=== PATIENT | male | born 1980 | race Caucasian/White ===

== ENCOUNTER 2021-04-21 12:25 | Emergency (ER) | payer OTHER, MEDICAID, SELFPAY ==
[2021-04-21 12:39] VITALS: BP 124/79; PULSE 70; RESP 18; TEMP 36.2; O2SAT 99
--- NOTE | 2021-04-21 12:44 | DI.RAD.S_ITS ---
PROCEDURE: XR FINGER LT MIN 2V INDICATIONS: laceration w/ skill saw TECHNIQUE: AP hand, 2 views of the 1st finger(s) acquired. COMPARISON: None. FINDINGS: Bones: No fractures or dislocations. No suspicious bony lesions. Soft tissues: No suspicious soft tissue calcifications. First finger soft tissue laceration without radiopaque foreign body IMPRESSION: Soft tissue laceration without fracture or foreign body Approved by: Dell Golden M.D. on 04/21/2021 at 12:17
[2021-04-21] MEDS: LIDOCAINE 1% 20 ML 10 ML INJ (15:02)
--- NOTE | 2021-04-21 16:07 | PC.NURSE ---
Pt came out of room and aggressively asked staff about wait I have been holding my finger together for four hours!!! Is anyone going to see me or are they just going to ask for my birthday again? Stance was aggressive. Approached pt and updated on acuity of the Emergency Room (multiple level 2s and one level 1, full ED) and he verbalized further aggression. I then asked him to be patient. He further verbalized frustration in an in appropriate way to me. I then offered that he could leave the ED if he chose or I could ask the provider for a time frame. He agreed to allow me to ask provider for a time frame. PA in to evaluate patient.
[2021-04-21 16:56] VITALS: BP 122/76; PULSE 67; RESP 16; O2SAT 99
--- NOTE | 2021-04-24 17:42 | ED.SKABFB ---
HPI - Skin/Abscess/Foreign Bdy <Vlad Cohen PA-C - Last Filed: 04/24/21 17:56> General Chief complaint: Skin/Abscess/Foreign Body Stated complaint: Laceration to Left Thumb Time Seen by Provider: 04/21/21 14:02 Source: patient Mode of arrival: Ambulatory Limitations: no limitations History of Present Illness HPI narrative: 40-year-old male with no reported past medical history presents to the ED status post he laceration to left thumb sustained just prior to arrival. Patient was using a skill saw at home when he accidentally injured his left thumb. Patient denies numbness, tingling, weakness. Endorses being able to stop the bleeding with pressure. Denies fever, chills, chest pain, shortness of breath, nausea, vomiting, Abdominal pain, lightheadedness, dizziness, syncope. last Tdap was 5 months ago. Related Data Home Medications Medication Instructions Recorded Confirmed No Known Home Medications 04/21/21 04/21/21 Allergies Allergy/AdvReac Type Severity Reaction Status Date / Time Sulfa (Sulfonamide Allergy Severe Anaphylaxis Verified 04/21/21 12:44 Antibiotics) Review of Systems <Vlad Cohen PA-C - Last Filed: 04/24/21 17:56> Constitutional Constitutional: Denies chills, Denies fatigue, Denies fever(s), Denies frequent falls, Denies lethargy and Denies weakness Eyes Eyes: Denies change in vision, Denies eye discharge, Denies irritation and Denies loss of vision ENT Ears, Nose, Mouth, and Throat: Denies change in voice, Denies dizziness, Denies neck pain, Denies sore throat and Denies throat swelling Cardiovascular Cardiovascular: Denies chest pain, Denies irregular heart rhythm, Denies lightheadedness, Denies palpitations, Denies dyspnea, Denies dyspnea on exertion and Denies orthopnea Respiratory Respiratory: Denies cough, Denies dyspnea, Denies dyspnea on exertion and Denies wheezing Gastrointestinal Gastrointestinal: Denies abdominal pain, Denies change in bowel habits, Denies diarrhea, Denies nausea and Denies vomiting Musculoskeletal Musculoskeletal: Denies neck pain and Denies numbness Integumentary/Breasts Skin/Breast: Denies pruritus, Denies erythema, Denies rash and Reports wounds Comments: Laceration to left thumb Neurologic Neurologic: Denies behavioral changes, Denies confusion, Denies dizziness, Denies frequent falls, Denies loss of vision, Denies numbness and Denies weakness Psychiatric Psychiatric: Denies anxiety, Denies behavioral changes, Denies confusion, Denies depression, Denies homicidal ideation and Denies suicidal ideation Endocrine Endocrine: Denies fatigue, Denies flushing and Denies palpitations Hematologic/Lymphatic Hematologic/Lymphatic: Denies easy bruising Allergic/Immunologic Allergic/Immunologic: Denies urticaria, Denies throat swelling and Denies wheezing Patient History <Vlad Cohen PA-C - Last Filed: 04/24/21 17:56> Social History Smoking Status: Current some day smoker Smoking Status: Current some day smoker tobacco type: vaping alcohol intake frequency: a few times a month Substance Use Type: marijuana Exam <BELEM Clark Last Filed: 04/24/21 17:56> Initial Vital Signs Initial Vital Signs: Vital Signs Temperature 97.1 F L 04/21/21 12:39 Pulse Rate 70 04/21/21 12:39 Respiratory Rate 18 04/21/21 12:39 Blood Pressure 124/79 04/21/21 12:39 Pulse Oximetry 99 04/21/21 12:39 Const General: cooperative HENMT Head: normocephalic and atraumatic Ears: external ears normal and TM's normal bilaterally Nose: external nose normal and No nasal discharge Face and sinus: sinuses nontender, face symmetric, no sinus tenderness and No dry mucous membranes Mouth: oral mucosae normal and moist mucous membranes Teeth and gingiva: dentition normal Throat: tonsils normal and uvula midline Eyes General: appearance normal, both eyes and all related structures Eyelids: eyelids normal Conjunctivae: conjunctivae normal Sclera: sclerae normal Pupils: PERRL EOM: EOM intact bilaterally Neck Neck: normal visual inspection, trachea midline, No lymphadenopathy, No midline deformity and No JVD Lymphatic: No lymphedema Chest Chest: normal inspection of the chest Resp Effort & Inspection: normal respiratory effort, able to speak in complete sentences, no respiratory distress and no use of accessory muscles Auscultation: clear to auscultation bilaterally, no rales, no rhonchi and no wheezes Cardio Rate: regular rate Rhythm: regular rhythm Heart Sounds: no click, no gallops, no murmurs and no rubs Pulses: normal peripheral pulses GI Inspection: non-distended Palpation: soft, no hepatosplenomegaly, No guarding, No pulsatile mass and No tender Auscultation: normal bowel sounds Back/Spine/Pelvis Back: No CVA tenderness Cervical Spine: cervical ROM normal and No pain with cervical ROM Thoracic/Lumbar Spine: thoracic and lumbar spine normal to inspection Skin General: No jaundice and No petechiae Trauma: laceration Other: U shaped laceration to the left thumb 3 cm long. No tendon involvement. Neurovascularly intact. Strength and sensation intact. Cap refill less than 2 seconds. full range of motion. Neuro General: patient alert, patient oriented x3, gait normal and no focal motor deficits Speech: speech normal Extrem General: full ROM, no clubbing, cyanosis or edema, no pedal edema and no calf tenderness Psych Appearance: well kempt Mental Status: mental status grossly normal Attitude: cooperative Thought Content: normal and suicidality Judgment: judgment good <DO Cindi Gruber Last Filed: 04/24/21 18:10> Initial Vital Signs Initial Vital Signs: Vital Signs Temperature 97.1 F L 04/21/21 12:39 Pulse Rate 70 04/21/21 12:39 Respiratory Rate 18 04/21/21 12:39 Blood Pressure 124/79 04/21/21 12:39 Pulse Oximetry 99 04/21/21 12:39 Procedures <Vlad Cohen PA-C - Last Filed: 04/24/21 17:56> Laceration Repair Laceration 1: Site: hand Side (If applicable): left Size (cm): 3 Description: flap and clean Depth: simple, single layer Local Anesthetic: lidocaine 1% Amount of anesthesia used (mL): 2 Pre-repair: wound explored, irrigated extensively and deep structures intact Skin layer closed with: nylon Size (cm): 4-0 Number of sutures: 7 Number of sutures: 7 Technique: simple, interrupted Course <BELEM Clark Last Filed: 04/24/21 17:56> Orders Ordered: Discontinued Medications Lidocaine HCl (Lidocaine 1% 20 Ml) 10 ml INJ NOW ONE Stop: 04/21/21 14:54 Last Admin: 04/21/21 15:02 Dose: 10 ml Documented by: SOY <DO Cindi Gruber Last Filed: 04/24/21 18:10> Orders Ordered: Discontinued Medications Lidocaine HCl (Lidocaine 1% 20 Ml) 10 ml INJ NOW ONE Stop: 04/21/21 14:54 Last Admin: 04/21/21 15:02 Dose: 10 ml Documented by: SOY WOODRUFF - Skin/Abscess/Foreign Bdy <Vlad Cohen PA-C - Last Filed: 04/24/21 17:56> Medical Records Attestation: I reviewed the patient's medical records. [facility] Narrative Medical decision making narrative: 40-year-old male with no reported past medical history presents to the ED status post he laceration to left thumb sustained just prior to arrival. concern for laceration versus bony injury. Will obtain x-rays. Will repair laceration with sutures. Will discharge home with ED return precautions, wound care instructions, infection precautions. Discharge Plan Departure Patient Disposition: Home Clinical Impression: Laceration Instructions: DI for Laceration Repair -- Finger Activity Restrictions/Additional Instructions: You sustained a laceration to your left thumb today. The x-ray did not show any fractures or dislocations. You physical exam was normal for strength and sensation. Your laceration was repaired with sutures. The wound should be re-evaluated and sutures need to be removed by medical provider in 10-14 days. You can return to the ED for suture removal or go to the walk-in clinic or your PCP. Return to the ED if you experience any signs of infection including redness, swelling, heat, discharge, pain. Prescriptions: No Action No Known Home Medications RF: 0 <Trever Garcia DO - Last Filed: 04/24/21 18:10> Cosign ED Attending Cosignature Attestation: Dr Garcia Co-Sign Statement: I was available for consultation during this patient's emergency department visit. This chart is signed by myself for administrative purposes only. I did not have direct contact with this patient during this visit. They were seen independently by the APC.
== END 2021-04-21 16:58 | disposition home or self-care (01) ==
PROVIDERS: Emergency Provider Student in an Organized Health Care Education/Training Program
DX: S61.012A Laceration without foreign body of left thumb without damage to nail, initial encounter (principal); W27.0XXA Contact with workbench tool, initial encounter
CPT/HCPCS: 12002; 73140; 99283